=== PATIENT | male | born 1950 | race African-American/Black ===

== ENCOUNTER → 2020-01-29 | Outpatient (CLI) | payer MEDICARE, OTHER | END | disposition home or self-care (01) | LOC: RAD 16:58 | PROVIDERS: ATTEND Chiropractor | DX: M50.33 Other cervical disc degeneration, cervicothoracic region (principal); M51.36 Other intervertebral disc degeneration, lumbar region; M47.817 Spondylosis without myelopathy or radiculopathy, lumbosacral region; M99.01 Segmental and somatic dysfunction of cervical region; M99.02 Segmental and somatic dysfunction of thoracic region; M99.03 Segmental and somatic dysfunction of lumbar region; M99.04 Segmental and somatic dysfunction of sacral region | CPT/HCPCS: 72050; 72072; 72100; 72170 ==